=== PATIENT | female | born 1955 | race Caucasian/White ===

== ENCOUNTER 2021-05-08 11:28 | Emergency (ER) | payer SELFPAY ==
[2021-05-08 11:32] VITALS: BP 168/69; PULSE 56
[2021-05-08] MEDS: Ondansetron 4 MG Tab.DIS PO ONE (11:53)
[2021-05-08 12:18] LABS: CHLORIDE,CL 103 mEq/L (98-106); SODIUM,NA 141 mEq/L (136-145)
[2021-05-08] MEDS: Sodium Chloride 0.9% 1,000 ML IV ONE (12:27)
[2021-05-08] MEDS: Ondansetron 4 MG/2 ML SDV IVPUSH STA (12:28)
== END 2021-05-08 17:17 | disposition home or self-care (01) ==
LOC: CC.ED 11:28
DX: E86.0 Dehydration (principal); R55 Syncope and collapse; R11.2 Nausea with vomiting, unspecified; R00.1 Bradycardia, unspecified; Z88.2 Allergy status to sulfonamides
CPT/HCPCS: 36415; 70450; 72125; 80053; 81003; 84484; 85025; 86140; 93005; 96374; 99284-25; A9270-GY; J2405; J7030